=== PATIENT | female | born 1965 ===

== ENCOUNTER 2017-01-30 07:20 | Day surgery (SDC) | payer OTHER ==
[~2017-01-30] VITALS: Ht 157.5 cm; Wt 65.3 kg
[~2017-01-30 07:20] MED LIST: 0.9% Sodium Chloride 1,000 ML IV SCH; ALBU8.5H2 INHALATION; ASCO500C6 PO; BENZ200C44 PO; CALC500C PO; CETI10CA PO; CHOL500062 PO; CICL15CR12 TP; CYCL10TA9 PO; HYDR-3825 PO; MULT-1018 PO; POLY17PO6 PO; PROM25TA14 PO; PROZ20 PO; RES30 PO; Sodium Chloride LOK Flush 10 mL Syringe IV PRN; fentaNYL-PF 50 mCg/mL 2 mL Inj IVPUSH PRN
[2017-01-30 08:29] VITALS: BP 111/73; PULSE 80; O2SAT 96
[2017-01-30 10:08] VITALS: BP 97/66; PULSE 78; RESP 15; O2SAT 100
[2017-01-30 10:26] VITALS: BP 116/80; PULSE 75; RESP 16; O2SAT 98
[2017-01-30 10:48] VITALS: BP 128/82; PULSE 75; RESP 14; O2SAT 100
--- NOTE | 2017-01-30 10:53 | ENDO ---
[address] [address] ENDOSCOPY PROCEDURE PATIENT: JUAN LUIS VALENZUELA : 1965 MR#: [id number] ADMIT: 01/30/2017 JOB ID: [id number] DATE: 01/30/2017 PREOPERATIVE DIAGNOSIS(ES): 1. Rectal bleeding. 2. Recent pneumonia. 3. Systemic lupus erythematosus. 4. Bronchiectasis. POSTOPERATIVE DIAGNOSIS(ES): 1. Large rectal mass starting at 8 cm consistent with rectal cancer. 2. Distal rectal polyp. 3. Sigmoid polyp x2. PROCEDURE: 1. Colonoscopy into terminal ileum with snare polypectomy x3 and multiple biopsies of rectal mass. 2. Rigid sigmoidoscopy. SURGEON: Larry Cervantes M.D. INDICATIONS: A 51-year-old female who saw Dr. Darrion Hamm for rectal bleeding and he requested a colonoscopy. Informed consent was obtained. The patient gave a recent history of pneumonia and bronchiectasis and so the procedure was done with anesthesia providing sedation. The procedure and sedation plan was discussed with the patient and also with Dr. Wan Marie D.O. Informed consent was obtained. She was placed in the left lateral decubitus position. A digital rectal examination was performed and on digital examination a rectal mass could be appreciated at the tip of my finger. The Olympus PCF H 180 AL video colonoscope was passed transanally, advanced into the rectum and almost immediately a non circumferential fungating mass was identified. There was enough stool and blood and mucus that visualization was somewhat impeded but I am fairly certain that it is not circumferential but perhaps covers 80% of the internal circumference of the rectum. Just distal to that was a small rectal polyp that was removed with a snare and cautery and sent as a separate specimen. The scope was then advanced beyond the rectal mass and ultimately into the terminal ileum. The terminal ileum appeared normal. There were two sigmoid colon polyps identified. She had a poor prep with multiple pools of turbid liquid stool but also pieces of corn. After performing the snare polypectomy with cautery of the two sigmoid colon polyps that were submitted as a single specimen and then multiple biopsies of the rectal mass were obtained. The mass extended from approximately 8-16 cm. Retroflexed views of the rectum revealed no distal rectal masses or polyps. I then positioned a rigid sigmoidoscope and with that estimated from the anal verge the tumor at 8 cm. IMPRESSION: 1. Rectal bleeding secondary to rectal cancer. 2. Distal rectal polyp grossly benign. 3. Two sigmoid colon polyps grossly benign. 4. Poor prep. PLAN: I have ordered a CT scan of the abdomen and pelvis with contrast. I have also ordered a CEA. She will have a follow up appointment with Dr. Darrion Hamm. I will also arrange for an oncology consult.
[2017-01-30 10:54] VITALS: BP 132/84; PULSE 76; RESP 16; O2SAT 100
--- NOTE | 2017-01-30 16:03 | PCM.HPANE ---
Patient Data Date of Service: Jan 30, 2017 Surgeon Admitting Provider: Attending Provider:Larry Cervantes MD Primary Care Physician:Rishi Garcia MD Other Provider:Perry Bo Anesthesia Reason for Visit Rectal Bleeding Ht/WT & BMI Height (Feet): 5 Height (Inches): 2 Weight (Kilograms): 65.32 Body Mass Index 26.00 Allergies Coded Allergies: cimetidine (Verified Allergy, Mild, rash, 05/17/14) ciprofloxacin (Verified Allergy, Mild, rash, 05/17/14) imipenem (Verified Allergy, Mild, rash, 05/17/14) citalopram (Verified Allergy, Unknown, bad dreams, 05/17/14) Past Anesthesia History Anesthesia History: Denies:: Abnormal Airway, Anesthesia Reactions, Difficult Intubation, Fam Anesthesia Reaction, Fam Malignant Hypertherm, Malignant Hyperthermia Diabetes History Hx Diabetes?: No MRSA MRSA: No Medications Reported Medications Cetirizine HCl (Zyrtec)10 Mg Mtbzdkx95 Mg PO HS #30 CAPSULE Ref 0 01/28/17 Temazepam 30 Mg Cap30 Mg PO HS PRN For Insomnia 30 Days Ref 0 01/28/17 Fluoxetine (Prozac)20 Mg Mxenunt27 Mg PO DAILY Ref 0 01/28/17 Promethazine 25 Mg Jpbcdn42 Mg PO Q6H PRN For Nausea Ref 0 01/28/17 Albuterol HFA (Proair HFA)8.5 Gm Hfa.aer.ad2 Puffs INHALATION Q4H #1 INHALER 01/28/17 Polyethylene Glycol 3350 (Miralax)17 Gm Powd.pack17 Gm PO 01/28/17 Hydrocodone-Acetaminophen 7.5-325 mg 1 Each Tablet1 Tablet PO Q4H PRN For Pain Ref 0 01/28/17 Cyclobenzaprine 10 Mg Gfigvz59 Mg PO TID PRN Spasm 01/28/17 Ciclopirox Olamine (Ciclopirox)15 Gm Cream..g.15 Gm TP 01/28/17 Benzonatate 200 Mg Mhzxwte459 Mg PO BID 01/28/17 Discontinued Reported Medications Cholecalciferol (Vitamin D3) (Vitamin D3)5,000 Unit Tab.rapdis5,000 Unit PO DAILY 01/28/17 Ascorbic Acid (Vitamin C)500 Mg Capsule.er500 Mg PO DAILY 01/28/17 Multivitamin (Multi Vitamin Daily)1 Each Tablet1 Each PO DAILY 30 Days Ref 0 01/28/17 Calcium Carbonate (Calci-Mix)500 Mg Capsule1,250 Mg PO 01/28/17 Cetirizine HCl (Zyrtec)10 Mg Ynchyuv22 Mg PO HS #30 CAPSULE Ref 0 05/17/14 Temazepam 30 Mg Cap30 Mg PO HS PRN For Insomnia 30 Days Ref 0 05/17/14 Promethazine 25 Mg Pkozym59 Mg PO Q6 PRN For Nausea Ref 0 05/17/[address] (Protonix)20 Mg Nwdycw03 Mg PO DAILY 30 Days Ref 0 05/17/14 Lipase/Protease/Amylase (Pancrelipase DR)1 Each Capsule.dr1 Each PO 05/17/14 Nystatin/Triamcin (Nystatin-Triamcinolone Cream)15 Gm Cream..g.15 Gm TP 05/17/14 Hydrocodone-Acetaminophen 5-325 mg 1 Each Tablet1 Each PO Q4 PRN For Pain Ref 0 05/17/14 Cyclobenzaprine N Tablet5 Mg PO HS PRN For Spasm Ref 0 05/17/14 Clobetasol Propionate/Emoll (Clobetasol Emollient 0.05% Crm)15 Gm Cream..g.1 Appl TOP BID #1 TUBE 05/17/14 Ciclopirox 6.6 Ml Solution6.6 Ml TP 05/17/14 Cefuroxime Axetil 125 Mg/5 Ml Susp.oywsj364 Mg PO 05/17/14 Calcium Carbonate (Calci-Chew)500 Mg Tab.asfb864 Mg PO 05/17/14 History History of ENT Problems?: No HEENT History: Denies:: Abnormal Airway Difficult Intubation Dysphagia Hearing Problem Denture Type: Full- Upper Teeth Condition: Missing Teeth Hx of Heart Problems?: No Cardiovascular History: Denies:: AICD Pacemaker Valvular Heart Disease Hx of Respiratory Problem?: No Respiratory History: Positive for:: Pneumonia (month ago) Denies:: Asthma COPD Cough Hemoptysis (sputumn is green) Other Resp Pertinent History: 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 Diagnosed with bronchiectasis. Hx Neurologic Problems?: No Neurological History: Denies:: CVA Hx of GI Problems?: Yes Hx of Problems?: No Female Hx: Denies:: Currently Hx Musculoskeletal Problems?: No Musculoskeletal History: Denies:: Fibromyalgia Joint Replacement Psycho Social History: Positive for:: Anxiety Hx Depression Hx Surgeries?: Yes (ERCP, GALLBLADDER,) Hx Diabetes: No Hx Alcohol Use: No Smoking Status: Former Smoker Stop/Bang Treated for Sleep Apnea?: No Do You Have a CPAP Machine?: No S-Snoring: Do You Snore Loudly: No T-Tired: feel tired, fatigued: Yes O-Obsered: Observed not breath: No P-Blood Pressure: treated: No B- Body Mass Index > 35 kg/m2: Yes A- Age over 50: Yes N- Neck Large Circumference: No G- Gender Male: No OLIVERIO Total Score: 3 OLIVERIO Risk Assessment: Low Risk, <3 Yes Risk Assessment Category Category 1A: Patient has history of documented sleep apnea, and HAS NOT received any narcotic, sedative or anesthesia administration during this stay. Category 1B: Patient has history of documented sleep apnea, and HAS received any narcotic , sedative or anesthesia administration during this stay Category 2: Patient has SUSPECTED Obstructive Sleep Apnea, and HAS received any narcotic , sedative or anesthesia administration during this stay. Category 3: Patient has SUSPECTED Obstructive Sleep Apnea and HAS NOT received narcotic, sedative or anesthesia administration during this stay. Category 4: Outpatient in Procedural Areas with known sleep apnea or who screen positive for High Risk via the STOP/BANG questionnaire. Exam Exam Vital Signs Vital Signs Date Time Temp Pulse Resp B/P Pulse Ox O2 Delivery O2 Flow Rate FiO2 01/30/17 10:54 76 16 132/84 100 Room Air 01/30/17 10:48 75 14 128/82 100 Room Air 01/30/17 10:26 75 16 116/80 98 Room Air 01/30/17 10:08 78 15 97/66 100 Nasal Cannula 4 01/30/17 08:29 80 111/73 96 Room Air General Appearance: Alert, Oriented X3, Cooperative, No Acute Distress HEENT/AIRWAY: MP 2 Lungs: Clear to Auscultation, Normal Air Movement Heart: Exam Unremarkable, Regular Rate/Rhythm, No Murmurs/Rubs/Gallops Meds/Labs/Diagnostics Admission Meds Current Medications Sodium Chloride (Normal Saline) 1,000 ml @ 10 mls/hr Q24H IV Last administered on 01/30/17t 10:05; Start 01/30/17 at 06:00 Labs Test 01/30/17 11:06 Plan Impression Patient chart reviewed, patient interviewed and anesthestic plan with risks, benefits, and alternatives discussed, and informed consent obtained. NPO per Anesth. Guidelines: Yes ASA Physical Status: ASA3 Severe Disease Anesthetic Plan: GA Bene/Risks/Altern/Consents: Yes HP Complete Prior to Induction: Yes Wan Marie DO Jan 30, 2017 16:03
--- NOTE | 2017-01-30 16:05 | PCM.ANEP1 ---
Post Anesthesia PACU Phase 1 Assessment Date of Service: Jan 30, 2017 Vital Signs Vital Signs Date Time Temp Pulse Resp B/P Pulse Ox O2 Delivery O2 Flow Rate FiO2 01/30/17 10:54 76 16 132/84 100 Room Air 01/30/17 10:48 75 14 128/82 100 Room Air 01/30/17 10:26 75 16 116/80 98 Room Air 01/30/17 10:08 78 15 97/66 100 Nasal Cannula 4 01/30/17 08:29 80 111/73 96 Room Air Anesthetic Administered: MAC Level of Alertness: Sleeping, hard to arouse Pain: No Nausea or Vomiting: No CV Function & Hydration Stable: Yes Airway Device: Oxygen Delivery: Room Air Lungs: Clear to Auscultation, Normal Air Movement Dermatome Level: Full Sensation PACU Phase 2 Assessment Complications: No Patient Instructions Provided: N/A Wan Marie DO Jan 30, 2017 16:04
--- NOTE | 2017-01-31 15:15 | PATH ---
SURGICAL PATHOLOGY Attending Physician:Pebbles Nam CASE STATUS: Signed Out PATIENT NAME: JUAN LUIS VALENZUELA PID: [id number] : 1965 DATE COLLECTED:01/30/2017 15:45 SPECIMEN: 1: Rectum, Biopsy 2: Rectum, Biopsy 3: Colon, Polyp CLINICAL HISTORY: 1). RECTAL POLYP X1 2). RECTAL MASS 3). SIGMOID POLYP FINAL DIAGNOSIS: 1.RECTUM, POLYP, BIOPSY: HIGH-GRADE DYSPLASIA AT LEAST, IS PRESENT IN A BACKGROUND OF ULCER, SEE COMMENT. 2.RECTUM, MASS, BIOPSY: INVASIVE ADENOCARCINOMA, MODERATELY DIFFERENTIATED, SEE COMMENT. 3.SIGMOID COLON, POLYP, BIOPSY: TUBULOVILLOUS ADENOMA. NO EVIDENCE OF MALIGNANCY OR HIGH-GRADE DYSPLASIA. [id number] NOTE: 1. Small fragments of at least high-grade dysplasia are present with a ulcerated fragment, suspicious for invasive carcinoma. Correlation of location of this biopsy to the mass is recommended. 2. As part of a routine chief quality officer, Dr. Bajwa has also reviewed part 2 of this case and agrees with the diagnosis. Mismatch repair studies will be ordered and the results reported as an addendum. Dr. Cummings called Dr. Cervantes' s office and spoke discussed preliminary findings with Isa RN on 01/31/17. GROSS DESCRIPTION: Received three formalin-filled containers, each labeled with the patient' s name. 1. Received in formalin, labeled with the patient' s name and "rectal polyp", are three fragments of bassett, soft tissue ranging from 0.2 x 0.1 x 0.1 cm to 0.3 x 0.2 x 0.1 cm. The fragments are totally submitted in cassette 1A. 2. Received in formalin, labeled with the patient' s name and "rectal mass", are multiple fragments of bassett, soft tissue ranging from 0.1 x 0.1 x 0.1 cm to 0.3 x 0.2 x 0.2 cm. The fragments are totally submitted in cassette 2A. 3. Received in formalin, labeled with the patient' s name and "sigmoid polyp x1", is one fragment of bassett, soft tissue measuring 0.9 x 0.7 x 0.4 cm. The fragment is bisected and totally submitted in cassette 3A. [id number]) MICRO DESCRIPTION: See diagnosis. ICD-9 CODES: CPT CODES: 1: 19211 2: 69597 3: 08344 Electronically Signed Out Sindhu Cummings MD [facility] Pathology [facility] [address], [place] [address] Technical component performed at [facility], [address], [place], [address]
== END 2017-01-30 23:59 | disposition home or self-care (01) ==
LOC: END 07:20
PROVIDERS: ATTEND Surgery
DX: C20 Malignant neoplasm of rectum (principal); D12.5 Benign neoplasm of sigmoid colon; K62.5 Hemorrhage of anus and rectum; F41.9 Anxiety disorder, unspecified; Z79.899 Other long term (current) drug therapy; Z87.891 Personal history of nicotine dependence
CPT/HCPCS: 36415; 45380; 45385; 82378; J7030

== ENCOUNTER → 2017-03-05 | Day surgery (SDC) | payer OTHER ==
[~2017-03-05] VITALS: Ht 157.5 cm; Wt 66.2 kg
[~2017-03-05] MED LIST changes: -0.9% Sodium Chloride 1,000 ML IV SCH; -ASCO500C6 PO; -BENZ200C44 PO; +Bupivacaine-MPF 0.5% 30 mL Inj INJ ONE; -CALC500C PO; +CHOL500011 PO; -CHOL500062 PO; +CLOB15OI2 TP; -CYCL10TA9 PO; +CYCL5TAB PO; +CeFAZolin 2 Gm/50 mL D5W Duplex Bag IV ONE; +Dexamethasone 4 mg/mL Inj ONE; +EPHEDrine Sulfate 50 mg/mL Inj IVPUSH PRN; -HYDR-3825 PO; +HYDR-4003 PO; +HYDROmorphone 1 mg/mL Inj IVPUSH PRN; +HepLOK Flush 100 unit/mL 5 mL Inj IVFLUSH ONE; +KETO120S TOP; +Lactated Ringer's 1,000 ML IV SCH; +Lactated Ringer's 500 ML IV PRN; -MULT-1018 PO; +MULTIVITAL PO; +MetoCLOpramide 5 mg/mL 2 mL Inj IVPUSH PRN; +NYST15CR TP; +Ondansetron 2 mg/mL 2 mL Inj IVPUSH PRN; +Ondansetron 2 mg/mL 2 mL Inj ONE; +PANT40TA3 PO; -POLY17PO6 PO; +Phenylephrine 10,000 mCg/mL Inj IVPUSH PRN; +Propofol 10,000 mCg/mL 20 mL Inj ONE; -Sodium Chloride LOK Flush 10 mL Syringe IV PRN; +calcium chew PEG; +fentaNYL-PF 50 mCg/mL 2 mL Inj ONE; +pancrelipase PO
[2017-03-05] MEDS: Lactated Ringer's 1,000 ML IV SCH ×2 (07:01→08:54)
[2017-03-05 07:24] VITALS: BP 123/79; PULSE 85; RESP 16; O2SAT 97
--- NOTE | 2017-03-05 08:52 | PCM.HPANE ---
Patient Data Date of Service: Mar 05, 2017 Surgeon Admitting Provider: Attending Provider:Darrion Hamm MD Primary Care Physician:Rishi Garcia MD Other Provider:Perry Bo Anesthesia Reason for Visit Rectal Cancer Ht/WT & BMI Height (Feet): 5 Height (Inches): 2.00 Weight (Kilograms): 66.2 Body Mass Index 26.00 Allergies Coded Allergies: cimetidine (Verified Allergy, Mild, rash, 05/17/14) ciprofloxacin (Verified Allergy, Mild, rash, 05/17/14) imipenem (Verified Allergy, Mild, rash, 05/17/14) citalopram (Verified Allergy, Unknown, bad dreams, 05/17/14) Past Anesthesia History Anesthesia History: Denies:: Abnormal Airway, Anesthesia Reactions, Difficult Intubation, Fam Anesthesia Reaction, Fam Malignant Hypertherm, Malignant Hyperthermia Diabetes History Hx Diabetes?: No MRSA MRSA: No Medications Hypertension Medication: No Home Meds Incl Beta Mane: No Reported Medications Cholecalciferol (Vitamin D3) (Vitamin D3)5,000 Unit Tablet5,000 Unit PO DAILY 02/11/[address] 40 Mg Tablet.dr40 Mg PO DAILY Ref 0 02/11/17 [pancrelipase] No Conflict Check6 Capsule PO TIDWM 5000un cap 02/11/17 Nystatin/Triamcin (Nystatin-Triamcinolone Cream)15 Gm Cream..g.1 Gm TP DIRECTED PRN skin apply topically twice a day to affected areas 02/11/17 Ketoconazole (Nizoral)120 Ml Shampoo1 Ml TOP DIRECTED rub in and rise off after 5 mins, twice weekly 02/11/17 [multivital] No Conflict Check1 Tab PO DAILY 02/11/17 Hydrocodone-Acetaminophen 5-325 mg 1 Each Tablet1 Tablet PO Q6H PRN For Pain Ref 0 02/11/17 Cyclobenzaprine 5 Mg Tablet5 Mg PO DIRECTED PRN Spasm Ref 0 q8hs, prn and every evening 02/11/17 Clobetasol Propionate 15 Gm Oint...g.1 Gm TP DIRECTED PRN dermatitis apply sparingly to scalp BID for 2 weeks with 1 week intervals 02/11/17 [calcium chew] No Conflict Gkske046 Mg PEG DAILY 02/11/17 Cetirizine HCl (Zyrtec)10 Mg Nttipel94 Mg PO HS #30 CAPSULE Ref 0 01/28/17 Temazepam 30 Mg Cap30 Mg PO HS PRN For Insomnia 30 Days Ref 0 01/28/17 Fluoxetine (Prozac)20 Mg Fnjwkrq86 Mg PO DAILY Ref 0 01/28/17 Promethazine 25 Mg Hbvfkj16 Mg PO Q6H PRN For Nausea Ref 0 01/28/17 Albuterol HFA (Proair HFA)8.5 Gm Hfa.aer.ad2 Puffs INHALATION Q4H #1 INHALER 01/28/17 Ciclopirox Olamine (Ciclopirox)15 Gm Cream..g.1 Gm TP BID corner of mouth 01/28/17 History History of ENT Problems?: No HEENT History: Denies:: Abnormal Airway Difficult Intubation Dysphagia Hearing Problem Denture Type: Partial- Upper Teeth Condition: Broken Teeth Tooth Decay Missing Teeth Hx of Heart Problems?: No Cardiovascular History: Denies:: AICD Congestive Heart Failure Coronary Artery Disease Hypertension Irregular Heartbeat Pacemaker Valvular Heart Disease Hx of Respiratory Problem?: Yes Respiratory History: Positive for:: Pneumonia (hx of) Denies:: Asthma COPD Cough Hemoptysis Oxygen Administration Use of C-PAP Machine Other History/Comment Bronchiectasis with PNA 12/2016 s/p abx, reports no SOB, cough, fevers, etc. Hx Neurologic Problems?: No Neurological History: Denies:: CVA Dementia Multiple Sclerosis Parkinson's Disease Seizures Hx of GI Problems?: Yes Gastrointestinal History: Denies:: Gastroesphageal Reflux Hepatitis Liver Disease Other GI Pertinent History: rectal ca current admission problem Hx of Problems?: No Genitourinary History: Denies:: Kidney Stones Urinary Tract Infection Female Hx: Positive for:: Endometriosis (hx of endometrial ablation) Denies:: Currently Skin History: Positive for:: History Skin Disorders? Hx Musculoskeletal Problems?: Yes Musculoskeletal History: Positive for:: Back Injury (Lower back pain) Denies:: Joint Replacement Osteoarthritis Hx of Psycho/Social Problems?: Yes Psycho Social History: Positive for:: Anxiety Hx Depression Hx Surgeries?: Yes (alvarez, endometrial ablation) Hx Any Other Health Problems?: Yes Other History: Positive for:: Cancer (rectal) Denies:: Thyroid Disease Hx Diabetes: No Hx Alcohol Use: NoHx Substance Use: No Smoking Status: Former Smoker Stop/Bang P-Blood Pressure: treated: No B- Body Mass Index > 35 kg/m2: No A- Age over 50: Yes N- Neck Large Circumference: No G- Gender Male: No Risk Assessment Category Category 1A: Patient has history of documented sleep apnea, and HAS NOT received any narcotic, sedative or anesthesia administration during this stay. Category 1B: Patient has history of documented sleep apnea, and HAS received any narcotic , sedative or anesthesia administration during this stay Category 2: Patient has SUSPECTED Obstructive Sleep Apnea, and HAS received any narcotic , sedative or anesthesia administration during this stay. Category 3: Patient has SUSPECTED Obstructive Sleep Apnea and HAS NOT received narcotic, sedative or anesthesia administration during this stay. Category 4: Outpatient in Procedural Areas with known sleep apnea or who screen positive for High Risk via the STOP/BANG questionnaire. Exam Exam Vital Signs Vital Signs Date Time Temp Pulse Resp B/P Pulse Ox O2 Delivery O2 Flow Rate FiO2 03/05/17 07:24 36.4 85 16 123/79 97 Room Air General Appearance: Alert, Oriented X3 HEENT/AIRWAY: MP 2 Lungs: Rhonchorus (Coarse crackles and mild rhonchi at L lung base) Heart: Exam Unremarkable, Regular Rate/Rhythm, No Murmurs/Rubs/Gallops Meds/Labs/Diagnostics Admission Meds Current Medications Lactated Ringer's (Lr) 1,000 ml @ 120 mls/hr Q8H20M IV Last administered on t 07:01; Start 03/05/17 at 05:00; Stop 03/05/17 at 13:19 Plan Impression Patient chart reviewed, patient interviewed and anesthestic plan with risks, benefits, and alternatives discussed, and informed consent obtained. NPO per Anesth. Guidelines: Yes ASA Physical Status: ASA3 Severe Disease Anesthetic Plan: MAC Bene/Risks/Altern/Consents: Yes HP Complete Prior to Induction: Yes Claude Garibay MD Mar 05, 2017 08:52
[2017-03-05 10:30] VITALS: BP 134/87; PULSE 81; RESP 16; O2SAT 96
[2017-03-05 10:50] VITALS: BP 130/78; PULSE 90; RESP 16; O2SAT 96
--- NOTE | 2017-03-05 10:55 | PCM.SURGPO ---
Immediate Operative Note Date of Surgery: Mar 05, 2017 Pre Operative Diagnosis Rectal cancer Post Operative Diagnosis rectal Cancer Procedure Tunneled right internal jugular central venous catheter with port placement and Flexible sigmoidoscopy with Tattooing Surgeon and Manager Sharepoint Surgeon: Darrion Hamm MD Assistants: None Findings Firm mass consistent with known adenocarcinoma. Port in good place Complications There were no periprocedural complications identified. Surgical Specimen Removed: No Specimen sent to Pathology: No Anesthetic Administered: MAC Grafts, Implants: Implants-See Implant Record Output, Estimated Blood Loss: 2 Blood Admin during surgery: No Darrion Hamm MD Mar 05, 2017 10:55
[2017-03-05 11:11] VITALS: BP 127/82; PULSE 92; RESP 16; O2SAT 98
--- NOTE | 2017-03-05 12:07 | PCM.ANEP1 ---
Post Anesthesia PACU Phase 1 Assessment Vital Signs Vital Signs Date Time Temp Pulse Resp B/P Pulse Ox O2 Delivery O2 Flow Rate FiO2 03/05/17 07:24 36.4 85 16 123/79 97 Room Air Anesthetic Administered: MAC Level of Alertness: Awake, talking Pain: No Nausea or Vomiting: No CV Function & Hydration Stable: Yes Airway Device: Oxygen Delivery: Room Air Lungs: Normal Air Movement, Rhonchorus (Coarse crackles and mild rhonchi at L lung base) PACU Phase 2 Assessment Complications: No Follow up Care: No Patient Instructions Provided: N/A Claude Garibay MD Mar 05, 2017 12:07
--- NOTE | 2017-03-05 12:45 | DRSVH ---
PROCEDURE: X-RAY CHEST ONE VIEW ([id number]) INDICATIONS: port placement TECHNIQUE: One view of the chest was acquired. COMPARISON: [facility], [place], PET NECK TO MID THIGH STD, 03/04/2017, 9:38. FINDINGS: Surgical changes and devices: Port-A-Cath from right sided approach appears to terminate at the azygo s arch level of the superior vena cava.. Lungs and pleura: No pleural effusions or pneumothorax. Lungs are abnormal with a reduced inspirato ry line and left basilar pneumonia pattern. Mediastinum: Mediastinal contours appear normal. Heart size is normal. Bones and chest wall: No suspicious bony lesions. Overlying soft tissues appear unremarkable. IMPRESSION: No pneumothorax after central line positioning within the middle third of the superior ve na cava. Left lower lobe mild pneumonia, faintly visualized on recent PET CT scanning one day ago. Dictated by: Andrew Houston M.D. on 03/05/2017 at 12:42 Approved by: Andrew Houston M.D. on 03/05/2017 at 12:43
--- NOTE | 2017-03-05 13:26 | OP ---
[address] [address] OPERATIVE REPORT PATIENT: JUAN LUIS VALENZUELA : 1965 MR#: [id number] ADMIT: 03/05/2017 JOB ID: [id number] DATE OF SURGERY: 03/05/2017 SURGEON: Darrion Hamm MD PREOPERATIVE DIAGNOSIS(ES): Rectal cancer. POSTOPERATIVE DIAGNOSIS(ES): Rectal cancer. PROCEDURE PERFORMED: Tunneled right internal jugular central venous catheter with intraoperative ultrasound and fluoroscopy with subcutaneous port, along with flexible sigmoidoscopy with tattooing. INDICATIONS: This patient is a 52-year-old lady who presented with rectal bleeding, and colonoscopy showed a mass at 8 cm, biopsy proven to be adenocarcinoma. She then had a CT scan, which was highly suggestive of at least a T3 or T4 tumor with masses within the mesorectum history of lymph node positive disease, and after discussing the risks, benefits, and alternatives, she presents today for port placement and tattooing of the rectum underneath the tumor to prepare her for at least neoadjuvant chemoradiation. PROCEDURE DETAILS: She was placed in supine position and underwent sedation and the neck and chest were prepped and draped in the usual sterile fashion. Surgical time-out was undertaken using safety checklist, and all were in agreement. I first attempted to cannulate the left subclavian vein but was not successful. Then, I used the ultrasound and accessed the right internal jugular vein with Seldinger technique and was able to advance the wire. I was able to advance it into the right ventricle but it did not go into the vena cava. Just to make sure, I also transduced the pressure and it did appear venous. I then made a pocket over the right pectoralis and anchored the port in place and tunneled the catheter up to the neck puncture site, dilated the wire tract using introducer dilator and then advanced the cut catheter through the introducer sheath into the superior vena cava. I then removed the tear away sheath and confirmed placement under fluoroscopy and then closed the skin incision in layers of 4-0 Monocryl. Dermabond was applied as a dressing and then we froglegged her and proceeded with the flexible sigmoidoscopy. I identified the bottom of the biopsy-proven adenocarcinoma at the top of the rectum near 8 cm and injected Tanya ink to locations on either side onto healthy rectum below the tumor. At that point, we desufflated the rectum and recovered the patient and took the patient to the recovery room in a stable condition. Postoperative chest x-ray did not show any obvious complications.
== END | disposition home or self-care (01) ==
LOC: SAS 02:28
PROVIDERS: ATTEND Student in an Organized Health Care Education/Training Program
DX: C20 Malignant neoplasm of rectum (principal); N80.9 Endometriosis, unspecified; F41.9 Anxiety disorder, unspecified; Z79.899 Other long term (current) drug therapy